=== PATIENT | male | born 2000 | race Caucasian/White ===

== ENCOUNTER 2020-06-28 00:49 | Emergency (ER) | payer MEDICAID ==
[~2020-06-28] VITALS: Ht 177.8 cm; Wt 104.3 kg
[2020-06-28] MEDS ORDERED: ALBENDAZOLE200 MG PO (00:57)
== END 2020-06-28 01:03 | disposition home or self-care (01) ==
LOC: ER 00:49
DX: T43.621A Poisoning by amphetamines, accidental (unintentional), initial encounter (principal); Z79.899 Other long term (current) drug therapy
CPT/HCPCS: 99282

== ENCOUNTER 2020-07-10 21:04 | Emergency (ER) | payer OTHER ==
[~2020-07-10] VITALS: Ht 193 cm; Wt 99.8 kg
[~2020-07-10 21:04] MED LIST: ALBENDAZOLE200 MG PO
[2020-07-10] MEDS ORDERED: [UNRECOGNIZED DRUG - OTHER] PO (22:07)
[2020-07-10 22:10] LABS: Calcium, Ionized (POC) 1.19 mmol/L (1.10-1.46); Chloride (POC) 102 mmol/L (98-108); Creatinine (POC) 0.8 mg/dL (0.8-1.3); Glucose (ISTAT POC) 82 mg/dL (70-99); Hemoglobin (POC) 15.6 g/dL (13.5-17.5); Potassium (POC) 3.7 mmol/L (3.5-5.5); Sodium (POC) 140 mmol/L (135-148); Total CO2 (POC) 27 mmol/L (21-32)
== END 2020-07-10 22:37 | disposition home or self-care (01) ==
LOC: ER 21:04
PROVIDERS: Emergency Medicine
DX: B71.9 Cestode infection, unspecified (principal); F17.200 Nicotine dependence, unspecified, uncomplicated; Z79.899 Other long term (current) drug therapy
CPT/HCPCS: 80047; 85014; 99284

== ENCOUNTER 2020-08-06 08:13 | Emergency (ER) | payer OTHER ==
[~2020-08-06] VITALS: Ht 193 cm; Wt 100.7 kg
[~2020-08-06 08:13] MED LIST changes: +ONDA4ODT MM; +[UNRECOGNIZED DRUG - OTHER] PO
[2020-08-06 09:18] LABS: Source, Urine Clean Catch
[2020-08-06 09:22] LABS: Bilirubin, Urine Neg (Neg); Blood, Urine 1+ (Neg); Glucose Qualitative, Urine Neg (Neg); Ketones, Urine 1+ (Neg); Leukocyte Esterase, Urine 1+ (Neg); Nitrite, Urine Neg (Neg); Protein, Urine 1+ (Neg); Specific Gravity, Urine 1.025 (1.003-1.022); Urobilinogen, Urine NORM (Normal)
[2020-08-06 09:31] LABS: Appearance, Urine Hazy (Clear); Color, Urine Yellow (P-Yellow)
[2020-08-06 09:34] LABS: Amorphous Heavy (0-Heavy); Bacteria Mod /hpf; Calcium Oxalate Crystals Mod /hpf; Mucus Mod (0-Heavy); Red Blood Cells, Urine 0-2 /hpf (0-2); Squamous Epithelial Cells Rare /hpf (Few); White Blood Cells, Urine 0-2 /hpf (0-5)
[2020-08-06] MEDS ORDERED: Cephalexin500 M1 PO (09:45)
[2020-08-06] MEDS ORDERED: Pyridium200 MG PO (09:45)
== END 2020-08-06 11:10 | disposition home or self-care (01) ==
LOC: ER 08:13
PROVIDERS: Physician Assistant
DX: N39.0 Urinary tract infection, site not specified (principal); F17.210 Nicotine dependence, cigarettes, uncomplicated
CPT/HCPCS: 76770; 81001; 87086; 99284-25